=== PATIENT | female | born 1995 | race Caucasian/White ===

== ENCOUNTER 2022-08-19 10:19 | Emergency (ER) | payer OTHER ==
[~2022-08-19] VITALS: Ht 162.6 cm; Wt 127.0 kg
[2022-08-19 10:24] VITALS: BP 144/84
[2022-08-19 11:12] LABS: APPEARANCE,URINE CLEAR (CLEAR); BILIRUBIN,URINE NEGATIVE (NEGATIVE); BLOOD, URINE 3+ (NEGATIVE); COLOR,URINE YELLOW (YELLOW); LEUKOCYTE ESTERASE ,URINE NEGATIVE (NEGATIVE); NITRITE, URINE NEGATIVE (NEGATIVE); UGLUCOSE NEGATIVE (NEGATIVE)
[2022-08-19] MEDS ORDERED: HYDROcodone/APAP 5/325 MG 1 TAB TAB PO ONE (11:25)
[2022-08-19 11:37] LABS: BASOPHILS # (AUTO) 0.1 K/uL (0.00-0.22); BASOPHILS % (AUTO) 0.4 % (0.0-2.0); EOSINOPHILS # (AUTO) 0.1 K/uL (0-0.4); EOSINOPHILS % (AUTO) 0.4 % (0.0-4.0); HEMATOCRIT 40.3 % (36-48); HEMOGLOBIN 13.4 g/dL (12.0-16.0); LYMPHOCYTES # (AUTO) 1.8 K/uL (2.5-16.5); LYMPHOCYTES % (AUTO) 10.3 % (20.5-51.1); MEAN CORPUSCULAR HEMOGLOBIN 27 pg (27-31); MEAN CORPUSCULAR HGB CONC 33 g/dL (33-37); MEAN CORPUSCULAR VOLUME 82.5 fL (80-94); MONOCYTES # (AUTO) 0.7 K/uL (0.8-1.0); MONOCYTES % (AUTO) 4.3 % (1.7-9.3); NEUTROPHILS # (AUTO) 14.5 K/uL (1.8-7.7); NEUTROPHILS % (AUTO) 84.6 % (42.2-75.2); PLATELET COUNT (AUTO) 351 K/uL (140-450); RED BLOOD CELL COUNT(AUTO) 4.89 MIL/uL (4.20-5.40); RED CELL DISTRIBUTION WIDTH 13.9 % (11.6-13.7); WHITE BLOOD COUNT (AUTO) 17.1 K/uL (4.8-10.8)
[2022-08-19 11:50] LABS: ANION GAP 11.7 (8-16); CARBON DIOXIDE 27.5 mmol/L (21-32); CREATININE 0.8 mg/dL (0.6-1.3); POTASSIUM 4.2 mmol/L (3.5-5.1); TOTAL BILIRUBIN 0.4 mg/dL (0.0-1.0)
[2022-08-19] MEDS ORDERED: IBUP-2213 PO (13:19)
[2022-08-19] MEDS ORDERED: TRAM50TA3 PO (13:19)
[2022-08-19] MEDS ORDERED: DOCU-300 PO (13:19)
[2022-08-19] MEDS ORDERED: CIPR500T4 PO (13:19)
[2022-08-19] MEDS ORDERED: METR-435 PO (13:19)
[2022-08-19] MEDS ORDERED: ONDA-188 PO (13:19)
[2022-08-19 13:43] VITALS: BP 106/65
== END 2022-08-19 13:43 | disposition home or self-care (01) ==
LOC: MED 10:19
DX: K57.32 Diverticulitis of large intestine without perforation or abscess without bleeding (principal); N83.202 Unspecified ovarian cyst, left side; Z79.899 Other long term (current) drug therapy
CPT/HCPCS: 36415; 74176; 76830; 80053; 81001; 81025; 82150; 83690; 84703; 85025; 99284; Q0092

== ENCOUNTER 2024-01-13 10:00 | Emergency (ER) | payer OTHER ==
[~2024-01-13] VITALS: Ht 162.6 cm; Wt 124.3 kg
[~2024-01-13 10:00] MED LIST: CIPR500T4 PO; DOCU-300 PO; IBUP-2213 PO; METR-435 PO; ONDA-188 PO; TRAM50TA3 PO
[2024-01-13 10:33] VITALS: BP 114/7; PULSE 69; RESP 16; TEMP 97.1; O2SAT 98
[2024-01-13 11:37] LABS: APPEARANCE,URINE CLEAR (CLEAR); BILIRUBIN,URINE NEGATIVE (NEGATIVE); BLOOD, URINE NEGATIVE (NEGATIVE); COLOR,URINE YELLOW (YELLOW); LEUKOCYTE ESTERASE ,URINE NEGATIVE (NEGATIVE); NITRITE, URINE NEGATIVE (NEGATIVE); PH,URINE 6.5 (5.0-9.0); PROTEIN,URINE NEGATIVE (NEGATIVE); UGLUCOSE NEGATIVE (NEGATIVE)
[2024-01-13 12:01] VITALS: BP 121/73; PULSE 72; RESP 18; TEMP 97.8; O2SAT 98
== END 2024-01-13 12:16 | disposition home or self-care (01) ==
LOC: MED 10:00
DX: R30.0 Dysuria (principal); M54.50 Low back pain, unspecified; Z79.899 Other long term (current) drug therapy
CPT/HCPCS: 81003; 81025; 99283